=== PATIENT | male | born 2000 | race Caucasian/White ===

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

== ENCOUNTER 2023-06-20 22:56 | Emergency (ER) | payer BC, OTHER, SELFPAY ==
[2023-06-20 23:02] VITALS: BP 139/89; PULSE 76; RESP 18; TEMP 36.7; O2SAT 96; BMI 32.5
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
[2023-06-21 00:27] VITALS: BP 126/86; PULSE 84; RESP 16
== END 2023-06-21 00:29 | disposition home or self-care (01) ==
PROVIDERS: Emergency Provider Emergency Medicine; PCP Family Medicine
DX: F32.A Depression, unspecified (principal)
CPT/HCPCS: 99282; 99283

== ENCOUNTER 2024-03-03 23:04 | Emergency (ER) | payer BC, OTHER, MEDICAID, SELFPAY ==
[2024-03-03 23:09] VITALS: BP 138/97; PULSE 115; RESP 18; TEMP 37.2; O2SAT 98; BMI 32.5
[2024-03-03 23:26] VITALS: PULSE 118; O2SAT 97
[2024-03-03 23:30] VITALS: PULSE 111; O2SAT 98
--- NOTE | 2024-03-03 23:41 | EKG_ITS ---
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
[2024-03-03 23:52] VITALS: BP 143/85; PULSE 127; O2SAT 99
--- NOTE | 2024-03-03 23:54 | ED.GENADULT ---
HPI - General Adult <Jorge Araiza DO - Last Filed: 03/04/24 18:10> General Chief complaint: Toxicology Problem Stated complaint: Serotonin syndrome Time Seen by Provider: 03/03/24 23:27 Source: patient and family Mode of arrival: Family Vehicle History of Present Illness HPI narrative: Patient was a 23-year-old male. Has a history of depression, bipolar disorder. He was on Wellbutrin. Takes 150 mg of the extended release bupropion in the morning. He states that on the morning of 03/03/2024 he took 10 150 mg of the bupropion. He states he took them at 0800 hours in the morning. He knows that he took 10 of the tablets. He states that he was feeling somewhat depressed this morning in order to try to make himself feel better he took extra doses of his medicines. He states he was not doing it in order to kill himself. He denies any other ingestions. This evening he told his mom what he did which is what brought him to the emergency department greater than 12 hours after he took the medication. He reports nausea, visual hallucinations, palpitations. Related Data Previous Rx's Medication Instructions Recorded bupropion HCl 150 mg 24 hr tablet, 150 mg PO QAM #90 tabs 10/06/23 extended release Allergies Allergy/AdvReac Type Severity Reaction Status Date / Time cetirizine [From [facility]] Allergy Unknown Unverified 05/17/23 13:07 Review of Systems <Jorge Araiza DO - Last Filed: 03/04/24 18:10> Review of Systems ROS Unobtainable: All systems reviewed & are unremarkable except as noted in HPI and below Patient History <Jorge Araiza DO - Last Filed: 03/04/24 18:10> Medical History Depression (~2021) History of bipolar disorder (~2021) Preventative health care Anxiety (~2015) Social History Smoking Status: Never smoker Smoking Status: Never smoker Exam <Jorge Araiza DO - Last Filed: 03/04/24 18:10> Initial Vital Signs Initial Vital Signs: Vital Signs Temperature 98.9 F 03/03/24 23:09 Pulse Rate 115 H 03/03/24 23:09 Respiratory Rate 18 03/03/24 23:09 Blood Pressure 138/97 H 03/03/24 23:09 Pulse Oximetry 98 03/03/24 23:09 Oxygen Delivery Method Room Air 03/03/24 23:09 Const General: cooperative, comfortable and No ill appearing HENMT Head: normal to inspection and normocephalic Resp Effort & Inspection: normal respiratory effort Auscultation: clear to auscultation bilaterally Cardio Rate: tachycardic Rhythm: regular rhythm GI Inspection: normal to inspection Skin General: no rashes or lesions noted Neuro General: patient alert, patient awake, patient oriented x3 and moves all extremities Cognition: normal cognition Speech: speech normal DTR's: Rt Patellar: 2+ and Lt Patellar: 2+ Other: No clonus noted Extrem General: capillary refill normal <Trinidad Ingram DO - Last Filed: 03/04/24 18:33> Initial Vital Signs Initial Vital Signs: Vital Signs Temperature 98.9 F 03/03/24 23:09 Pulse Rate 115 H 03/03/24 23:09 Respiratory Rate 18 03/03/24 23:09 Blood Pressure 138/97 H 03/03/24 23:09 Pulse Oximetry 98 03/03/24 23:09 Oxygen Delivery Method Room Air 03/03/24 23:09 Scores <Jogre Araiza DO - Last Filed: 03/04/24 18:10> GCS [place] coma scale eye opening: Spontaneous Ina coma scale verbal response: Orientated Ina coma scale motor response: Obey commands Ina coma scale total score: 15 <Trinidad Ingram DO - Last Filed: 03/04/24 18:33> GCS [place] coma scale total score: 15 Course <Jorge Araiza DO - Last Filed: 03/04/24 18:10> Orders Ordered: ED Orders 03/03/24 23:41 Consult to BAND SPL[employer]ER - Low Voltage Electrician Stat EKG-12 Lead Stat 03/03/24 23:50 Acetaminophen Stat Complete Blood Count AUTO DIFF Stat Comprehensive Metabolic Panel Stat Ethanol (ETOH) Stat Lipase Stat Salicylate Stat Thyroid Stimulating Hormone Stat 03/04/24 00:59 Urinalysis and Microscopic Stat Urine Drug Screen, Rapid Stat 03/04/24 08:25 CMP [Comprehensive Metabolic Panel] Stat Vital Signs Vital signs: Vital Signs - 8 hr 03/04/24 00:59 03/04/24 00:59 03/04/24 01:00 Pulse Rate 118 H 116 H Blood Pressure 144/88 H Pulse Oximetry 98 98 Oxygen Delivery Method Room Air 03/04/24 01:00 03/04/24 01:30 03/04/24 01:30 Pulse Rate 123 H Blood Pressure 144/87 H 135/84 Pulse Oximetry 98 Oxygen Delivery Method 03/04/24 02:00 03/04/24 02:00 03/04/24 02:34 Pulse Rate 114 H 131 H Blood Pressure 131/82 Pulse Oximetry 96 97 Oxygen Delivery Method 03/04/24 02:36 03/04/24 02:36 03/04/24 03:00 Pulse Rate 119 H Blood Pressure 140/81 139/82 Pulse Oximetry 96 Oxygen Delivery Method 03/04/24 03:00 03/04/24 03:30 03/04/24 03:30 Pulse Rate 117 H 111 H Blood Pressure 131/81 Pulse Oximetry 96 95 Oxygen Delivery Method 03/04/24 04:00 03/04/24 04:00 03/04/24 07:00 Pulse Rate 112 H 111 H Blood Pressure 132/81 Pulse Oximetry 96 97 Oxygen Delivery Method 03/04/24 07:00 03/04/24 07:15 03/04/24 07:30 Pulse Rate 109 H 106 H Blood Pressure 150/87 H Pulse Oximetry 96 97 Oxygen Delivery Method 03/04/24 07:30 03/04/24 08:00 03/04/24 08:00 Pulse Rate 104 H Blood Pressure 153/95 H 154/90 H Pulse Oximetry 97 Oxygen Delivery Method <Trinidad Ingram, DO - Last Filed: 03/04/24 18:33> Orders Ordered: ED Orders 03/03/24 23:41 Consult to BAND SPLICER - Low Voltage Electrician Stat EKG-12 Lead Stat 03/03/24 23:50 Acetaminophen Stat Complete Blood Count AUTO DIFF Stat Comprehensive Metabolic Panel Stat Ethanol (ETOH) Stat Lipase Stat Salicylate Stat Thyroid Stimulating Hormone Stat 03/04/24 00:59 Urinalysis and Microscopic Stat Urine Drug Screen, Rapid Stat 03/04/24 08:25 CMP [Comprehensive Metabolic Panel] Stat Vital Signs Vital signs: Vital Signs - 8 hr 03/04/24 00:59 03/04/24 00:59 03/04/24 01:00 Pulse Rate 118 H 116 H Blood Pressure 144/88 H Pulse Oximetry 98 98 Oxygen Delivery Method Room Air 03/04/24 01:00 03/04/24 01:30 03/04/24 01:30 Pulse Rate 123 H Blood Pressure 144/87 H 135/84 Pulse Oximetry 98 Oxygen Delivery Method 03/04/24 02:00 03/04/24 02:00 03/04/24 02:34 Pulse Rate 114 H 131 H Blood Pressure 131/82 Pulse Oximetry 96 97 Oxygen Delivery Method 03/04/24 02:36 03/04/24 02:36 03/04/24 03:00 Pulse Rate 119 H Blood Pressure 140/81 139/82 Pulse Oximetry 96 Oxygen Delivery Method 03/04/24 03:00 03/04/24 03:30 03/04/24 03:30 Pulse Rate 117 H 111 H Blood Pressure 131/81 Pulse Oximetry 96 95 Oxygen Delivery Method 03/04/24 04:00 03/04/24 04:00 03/04/24 07:00 Pulse Rate 112 H 111 H Blood Pressure 132/81 Pulse Oximetry 96 97 Oxygen Delivery Method 03/04/24 07:00 03/04/24 07:15 03/04/24 07:30 Pulse Rate 109 H 106 H Blood Pressure 150/87 H Pulse Oximetry 96 97 Oxygen Delivery Method 03/04/24 07:30 03/04/24 08:00 03/04/24 08:00 Pulse Rate 104 H Blood Pressure 153/95 H 154/90 H Pulse Oximetry 97 Oxygen Delivery Method Medical Decision Making <Jorge Araiza, DO - Last Filed: 03/04/24 18:10> Medical Records Medical records reviewed: Yes I reviewed the patient's medical records. Lab Data Lab results reviewed: Yes I reviewed the patient's lab results. 03/03/24 23:50 03/04/24 08:25 Labs: Lab Results 03/03/24 03/04/24 03/04/24 Range/Units 23:50 00:59 00:59 WBC 5.2 (4.5-11.0) X10^3/uL RBC 5.22 (4.5-5.9) X10^6/uL Hgb 15.8 (13.5-17.5) g/dL Hct 46.1 (41-53) % MCV 88.3 (80-100) fL MCH 30.4 (26-34) PG MCHC 34.4 (30-36) % RDW 13.2 (11.6-14.8) % Plt Count 238 (150-400) X10^3/uL Neut % (Auto) 71.2 (50-75) % Lymph % (Auto) 20.8 L (25-40) % Rich % (Auto) 4.2 (3-14) % Eos % (Auto) 1.9 L (2-4) % Baso % (Auto) 1.9 (0-2) % Neut # (Auto) 3700 (3181-4629) /uL Lymph # (Auto) 1100 (8833-7654) /uL Rich # (Auto) 200 (0-900) /uL Eos # (Auto) 100 (0-450) /uL Baso # (Auto) 100 (0-100) /uL Sodium 138 (137-145) mmol/L Potassium 4.0 (3.4-5.1) mmol/L Chloride 103 (98-107) mmol/L Carbon Dioxide 27 (22-32) mmol/L BUN 10 (9-20) mg/dL Creatinine 1.18 (0.66-1.25) mg/dL Estimated GFR > 60 (>60) mL/min BUN/Creatinine Ratio 8.5 (6-22) Glucose 92 (70-100) mg/dL Calcium 9.6 (8.4-10.2) mg/dL Total Bilirubin 0.7 (0.2-1.3) mg/dL AST 42 (17-59) IU/L ALT 52 H (<50) IU/L Alkaline Phosphatase 100 (38-126) U/L Total Protein 7.1 (6.3-8.2) g/dL Albumin 4.8 (3.5-5.0) g/dL Globulin 2.3 (1.7-4.1) g/dL Albumin/Globulin Ratio 2.1 (1.0-2.8) Lipase 63 (23-300) U/L TSH 2.20 (0.47-4.68) uIU/mL Urine Color Yellow Urine Appearance Clear Urine pH 6.0 Normal (4.5-8.0) Ur Specific [place] 1.010 (1.000-1.035) Urine Protein Negative (Negative) Urine Glucose (UA) Negative (Negative) g/dL Urine Ketones Negative (NEGATIVE) Urine Occult Blood Negative (Negative) Urine Nitrate Negative (Negative) Urine Bilirubin Negative (NEGATIVE) Urine Urobilinogen 0.2 (0.2) E.U./dL Ur Leukocyte Esterase Negative (NEGATIVE) Urine RBC None seen (0-5/HPF) Urine WBC None seen (0-5/HPF) Ur Squamous Epith Cells None seen (0-5/HPF) Urine Bacteria None seen (None) Ur Culture Indicated? Cult not indicated Vol Urine Centrifuged 10ml (spun) Salicylates < 1.0 (<20) mg/dL U Opiates 300ng/mL cut Negative (Negative) Ur Oxycodone Screen Negative (Negative) Urine Methadone Screen Negative (Negative) Acetaminophen < 10 (10-30) ug/mL Ur Barbiturates Screen Negative (Negative) U Tricyclic Antidepress Negative (Negative) Ur Phencyclidine Scrn Negative (Negative) Ur Amphetamines Screen Negative (Negative) U Methamphetamines Scrn Negative (Negative) Ur MDMA Scrn (Ecstasy) Negative (Negative) U Benzodiazepines Scrn Negative (Negative) Urine Cocaine Screen Negative (Negative) U Marijuana (THC) Screen Negative (Negative) Urine Specific [place] Normal (Normal) Ethyl Alcohol < 10 ( - 10) mg/dL Ur Creatinine Normal (Normal) 03/04/24 Range/Units 08:25 WBC (4.5-11.0) X10^3/uL RBC (4.5-5.9) X10^6/uL Hgb (13.5-17.5) g/dL Hct (41-53) % MCV (80-100) fL MCH (26-34) PG MCHC (30-36) % RDW (11.6-14.8) % Plt Count (150-400) X10^3/uL Neut % (Auto) (50-75) % Lymph % (Auto) (25-40) % Rich % (Auto) (3-14) % Eos % (Auto) (2-4) % Baso % (Auto) (0-2) % Neut # (Auto) (1069-3833) /uL Lymph # (Auto) (0793-6278) /uL Rich # (Auto) (0-900) /uL Eos # (Auto) (0-450) /uL Baso # (Auto) (0-100) /uL Sodium 137 (137-145) mmol/L Potassium 3.8 (3.4-5.1) mmol/L Chloride 102 (98-107) mmol/L Carbon Dioxide 27 (22-32) mmol/L BUN 10 (9-20) mg/dL Creatinine 1.20 (0.66-1.25) mg/dL Estimated GFR > 60 (>60) mL/min BUN/Creatinine Ratio 8.3 (6-22) Glucose 90 (70-100) mg/dL Calcium 9.4 (8.4-10.2) mg/dL Total Bilirubin 0.7 (0.2-1.3) mg/dL AST 35 (17-59) IU/L ALT 47 (<50) IU/L Alkaline Phosphatase 95 (38-126) U/L Total Protein 6.8 (6.3-8.2) g/dL Albumin 4.6 (3.5-5.0) g/dL Globulin 2.2 (1.7-4.1) g/dL Albumin/Globulin Ratio 2.1 (1.0-2.8) Lipase (23-300) U/L TSH (0.47-4.68) uIU/mL Urine Color Urine Appearance Urine pH (4.5-8.0) Ur Specific [place] (1.000-1.035) Urine Protein (Negative) Urine Glucose (UA) (Negative) g/dL Urine Ketones (NEGATIVE) Urine Occult Blood (Negative) Urine Nitrate (Negative) Urine Bilirubin (NEGATIVE) Urine Urobilinogen (0.2) E.U./dL Ur Leukocyte Esterase (NEGATIVE) Urine RBC (0-5/HPF) Urine WBC (0-5/HPF) Ur Squamous Epith Cells (0-5/HPF) Urine Bacteria (None) Ur Culture Indicated? Vol Urine Centrifuged Salicylates (<20) mg/dL U Opiates 300ng/mL cut (Negative) Ur Oxycodone Screen (Negative) Urine Methadone Screen (Negative) Acetaminophen (10-30) ug/mL Ur Barbiturates Screen (Negative) U Tricyclic Antidepress (Negative) Ur Phencyclidine Scrn (Negative) Ur Amphetamines Screen (Negative) U Methamphetamines Scrn (Negative) Ur MDMA Scrn (Ecstasy) (Negative) U Benzodiazepines Scrn (Negative) Urine Cocaine Screen (Negative) U Marijuana (THC) Screen (Negative) Urine Specific [place] (Normal) Ethyl Alcohol ( - 10) mg/dL Ur Creatinine (Normal) ECG Data Attestation: I personally reviewed and interpreted this ECG as follows: Interpretation: Sinus tachycardia Ventricular rate 113 Normal axis Normal QRS QTC [address] T wave changes MDM Narrative Medical decision making narrative: Patient arrives in the emergency department greater than 12 hours after the reported ingestion of the medication. He denies suicidal ideation. He has been tachycardic. His labs are unremarkable. I did discuss the case with poison control. They recommended a 24 hour observation from the time of the ingestion. I did discuss this with the patient and mother. My re-evaluation patient states he is feeling much better than when he even came here to the emergency department. We discussed the length time for recommendation of observation. Patient currently does not have an acute serotonin syndrome. Care turned over to day provider to follow up and disposition. <Trinidad Ingram, - Last Filed: 03/04/24 18:33> Lab Data Labs: Lab Results 03/03/24 03/04/24 03/04/24 Range/Units 23:50 00:59 00:59 WBC 5.2 (4.5-11.0) X10^3/uL RBC 5.22 (4.5-5.9) X10^6/uL Hgb 15.8 (13.5-17.5) g/dL Hct 46.1 (41-53) % MCV 88.3 (80-100) fL MCH 30.4 (26-34) PG MCHC 34.4 (30-36) % RDW 13.2 (11.6-14.8) % Plt Count 238 (150-400) X10^3/uL Neut % (Auto) 71.2 (50-75) % Lymph % (Auto) 20.8 L (25-40) % Rich % (Auto) 4.2 (3-14) % Eos % (Auto) 1.9 L (2-4) % Baso % (Auto) 1.9 (0-2) % Neut # (Auto) 3700 (7934-2262) /uL Lymph # (Auto) 1100 (9905-0057) /uL Rich # (Auto) 200 (0-900) /uL Eos # (Auto) 100 (0-450) /uL Baso # (Auto) 100 (0-100) /uL Sodium 138 (137-145) mmol/L Potassium 4.0 (3.4-5.1) mmol/L Chloride 103 (98-107) mmol/L Carbon Dioxide 27 (22-32) mmol/L BUN 10 (9-20) mg/dL Creatinine 1.18 (0.66-1.25) mg/dL Estimated GFR > 60 (>60) mL/min BUN/Creatinine Ratio 8.5 (6-22) Glucose 92 (70-100) mg/dL Calcium 9.6 (8.4-10.2) mg/dL Total Bilirubin 0.7 (0.2-1.3) mg/dL AST 42 (17-59) IU/L ALT 52 H (<50) IU/L Alkaline Phosphatase 100 (38-126) U/L Total Protein 7.1 (6.3-8.2) g/dL Albumin 4.8 (3.5-5.0) g/dL Globulin 2.3 (1.7-4.1) g/dL Albumin/Globulin Ratio 2.1 (1.0-2.8) Lipase 63 (23-300) U/L TSH 2.20 (0.47-4.68) uIU/mL Urine Color Yellow Urine Appearance Clear Urine pH 6.0 Normal (4.5-8.0) Ur Specific [place] 1.010 (1.000-1.035) Urine Protein Negative (Negative) Urine Glucose (UA) Negative (Negative) g/dL Urine Ketones Negative (NEGATIVE) Urine Occult Blood Negative (Negative) Urine Nitrate Negative (Negative) Urine Bilirubin Negative (NEGATIVE) Urine Urobilinogen 0.2 (0.2) E.U./dL Ur Leukocyte Esterase Negative (NEGATIVE) Urine RBC None seen (0-5/HPF) Urine WBC None seen (0-5/HPF) Ur Squamous Epith Cells None seen (0-5/HPF) Urine Bacteria None seen (None) Ur Culture Indicated? Cult not indicated Vol Urine Centrifuged 10ml (spun) Salicylates < 1.0 (<20) mg/dL U Opiates 300ng/mL cut Negative (Negative) Ur Oxycodone Screen Negative (Negative) Urine Methadone Screen Negative (Negative) Acetaminophen < 10 (10-30) ug/mL Ur Barbiturates Screen Negative (Negative) U Tricyclic Antidepress Negative (Negative) Ur Phencyclidine Scrn Negative (Negative) Ur Amphetamines Screen Negative (Negative) U Methamphetamines Scrn Negative (Negative) Ur MDMA Scrn (Ecstasy) Negative (Negative) U Benzodiazepines Scrn Negative (Negative) Urine Cocaine Screen Negative (Negative) U Marijuana (THC) Screen Negative (Negative) Urine Specific [place] Normal (Normal) Ethyl Alcohol < 10 ( - 10) mg/dL Ur Creatinine Normal (Normal) 03/04/24 Range/Units 08:25 WBC (4.5-11.0) X10^3/uL RBC (4.5-5.9) X10^6/uL Hgb (13.5-17.5) g/dL Hct (41-53) % MCV (80-100) fL MCH (26-34) PG MCHC (30-36) % RDW (11.6-14.8) % Plt Count (150-400) X10^3/uL Neut % (Auto) (50-75) % Lymph % (Auto) (25-40) % Rich % (Auto) (3-14) % Eos % (Auto) (2-4) % Baso % (Auto) (0-2) % Neut # (Auto) (8059-3374) /uL Lymph # (Auto) (1158-2918) /uL Rich # (Auto) (0-900) /uL Eos # (Auto) (0-450) /uL Baso # (Auto) (0-100) /uL Sodium 137 (137-145) mmol/L Potassium 3.8 (3.4-5.1) mmol/L Chloride 102 (98-107) mmol/L Carbon Dioxide 27 (22-32) mmol/L BUN 10 (9-20) mg/dL Creatinine 1.20 (0.66-1.25) mg/dL Estimated GFR > 60 (>60) mL/min BUN/Creatinine Ratio 8.3 (6-22) Glucose 90 (70-100) mg/dL Calcium 9.4 (8.4-10.2) mg/dL Total Bilirubin 0.7 (0.2-1.3) mg/dL AST 35 (17-59) IU/L ALT 47 (<50) IU/L Alkaline Phosphatase 95 (38-126) U/L Total Protein 6.8 (6.3-8.2) g/dL Albumin 4.6 (3.5-5.0) g/dL Globulin 2.2 (1.7-4.1) g/dL Albumin/Globulin Ratio 2.1 (1.0-2.8) Lipase (23-300) U/L TSH (0.47-4.68) uIU/mL Urine Color Urine Appearance Urine pH (4.5-8.0) Ur Specific [place] (1.000-1.035) Urine Protein (Negative) Urine Glucose (UA) (Negative) g/dL Urine Ketones (NEGATIVE) Urine Occult Blood (Negative) Urine Nitrate (Negative) Urine Bilirubin (NEGATIVE) Urine Urobilinogen (0.2) E.U./dL Ur Leukocyte Esterase (NEGATIVE) Urine RBC (0-5/HPF) Urine WBC (0-5/HPF) Ur Squamous Epith Cells (0-5/HPF) Urine Bacteria (None) Ur Culture Indicated? Vol Urine Centrifuged Salicylates (<20) mg/dL U Opiates 300ng/mL cut (Negative) Ur Oxycodone Screen (Negative) Urine Methadone Screen (Negative) Acetaminophen (10-30) ug/mL Ur Barbiturates Screen (Negative) U Tricyclic Antidepress (Negative) Ur Phencyclidine Scrn (Negative) Ur Amphetamines Screen (Negative) U Methamphetamines Scrn (Negative) Ur MDMA Scrn (Ecstasy) (Negative) U Benzodiazepines Scrn (Negative) Urine Cocaine Screen (Negative) U Marijuana (THC) Screen (Negative) Urine Specific [place] (Normal) Ethyl Alcohol ( - 10) mg/dL Ur Creatinine (Normal) MDM Narrative Medical decision making narrative: Patient arrives in the emergency department greater than 12 hours after the reported ingestion of the medication. He denies suicidal ideation. He has been tachycardic. His labs are unremarkable. I did discuss the case with poison control. They recommended a 24 hour observation from the time of the ingestion. I did discuss this with the patient and mother. My re-evaluation patient states he is feeling much better than when he even came here to the emergency department. We discussed the length time for recommendation of observation. Patient currently does not have an acute serotonin syndrome. Care turned over to day provider to follow up and disposition. Dr. ingram-patient signed out to me by Dr. Szymanski I have seen evaluated patient myself. He states he is overall feeling a lot better. He does have Tourette syndrome he was on citalopram but Tourette symptoms got worse he was weaning off the citalopram starting on the Wellbutrin but depression symptoms got worse as citalopram was tapered down. He just wanted to feel happy yesterday and took Wellbutrin. He does have intermittent suicidal thoughts but no real plan. He has historically seen a therapist has not seen 1 in [facility]. Primary care Dr. Yuan is managing medication. They have also use telehealth psychiatry providers in the past. At this time patient lives with his mom is able to contract for safety he does not meet involuntary criteria. Poison control wanted to repeat AST and ALT this morning AST is 35 ALT 47 at this time no evidence of serotonin syndrome. Patient states I have learned by lesson.We talked about how medication can not make you happy and that there are side effects and consequences of all medications. Patient and mother both feel comfortable going home Discharge Plan Departure Patient Disposition: Home Clinical Impression: Deliberate medication overdose, Depression Instructions: Depression Activity Restrictions/Additional Instructions: *You have been diagnosed with depression *What to do: At this time please talk with Dr. Yuan or tele health provider in regards to your medication. Hold off taking Wellbutrin today, start tomorrow as prescribed If you are feeling suicidal or having suicidal thoughts: Call: Suicide Hotline: 885 Visit: www.[facility]org Text: 667270 *Continue to take medications as directed *Follow up with your primary care provider in 2-3 days or call [phone] *Return to ER if you should have increased thoughts of suicidal ideation depression or any new, worsening or concerning symptoms Prescriptions: No Action bupropion HCl 150 mg tablet extended release 24 hr 150 mg PO QAM Qty: 90 3RF Referrals: Nelson Yuan DO [Primary Care Provider] - Stand Alone Forms: Patient Portal/API/Survey
[2024-03-04] VITALS (18 sets, daily range): BP systolic 131–154; BP diastolic 77–95; PULSE 100–131; RESP 23–24; TEMP 36.6; O2SAT 95–98
[2024-03-04] LABS: Add Manual Diff / Slide Review NO; Basophils Absolute Auto 100 /uL (0-100); Basophils Percent Auto 1.9 % (0-2); Eosinophils Absolute Auto 100 /uL (0-450); Eosinophils Percent Auto 1.9 % (2-4); Hematocrit 46.1 % (41-53); Hemoglobin 15.8 g/dL (13.5-17.5); Lymphocytes Absolute Auto 1100 /uL (1100-4500); Lymphocytes Percent Auto 20.8 % (25-40); Mean Corpuscular HGB Conc 34.4 % (30-36); Mean Corpuscular Hemoglobin 30.4 PG (26-34); Mean Corpuscular Volume 88.3 fL (80-100); Monocytes Absolute Auto 200 /uL (0-900); Monocytes Percent Auto 4.2 % (3-14); Neutrophils Absolute Auto 3700 /uL (1500-7000); Neutrophils Percent Auto 71.2 % (50-75); Platelet Count 238 X10^3/uL (150-400); Red Blood Cell Count 5.22 X10^6/uL (4.5-5.9); Red Cell Distribution Width 13.2 % (11.6-14.8); White Blood Cell Count 5.2 X10^3/uL (4.5-11.0)
[2024-03-04 00:13] LABS: Acetaminophen < 10 ug/mL (10-30); Alanine Aminotransferase 52 IU/L (<50); Albumin 4.8 g/dL (3.5-5.0); Albumin Globulin Ratio 2.1 (1.0-2.8); Alkaline Phosphatase 100 U/L (38-126); Aspartate Aminotransferase 42 IU/L (17-59); BUN Creatinine Ratio 8.5 (6-22); Bilirubin Total 0.7 mg/dL (0.2-1.3); Blood Urea Nitrogen 10 mg/dL (9-20); Calcium 9.6 mg/dL (8.4-10.2); Carbon Dioxide 27 mmol/L (22-32); Chloride 103 mmol/L (98-107); Estimated Glomerular Filt Rate > 60 mL/min (>60); Ethanol (ETOH) < 10 mg/dL; Globulin 2.3 g/dL (1.7-4.1); Glucose 92 mg/dL (70-100); Lipase 63 U/L (23-300); Salicylate < 1.0 mg/dL (<20); Sodium 138 mmol/L (137-145); Total Protein 7.1 g/dL (6.3-8.2)
[2024-03-04 00:14] LABS: HEMOLYSIS 51 (0-50)
[2024-03-04 01:05] LABS: Appearance Urine UA CLEAR; Bilirubin Urine UA NEGATIVE (NEGATIVE); Color Urine UA YELLOW; Glucose Urine UA NEGATIVE (Negative); Ketones Urine UA NEGATIVE (NEGATIVE); Leukocyte Esterase Urine UA NEGATIVE (NEGATIVE); Nitrite Urine UA NEGATIVE (Negative); Occult Blood Urine UA NEGATIVE (Negative); Protein Urine UA NEGATIVE (Negative); Urobilinogen Urine UA 0.2 E.U./dL (0.2)
[2024-03-04 01:10] LABS: Ur Creatinine Normal (Normal); Ur Specific Gravity Normal (Normal); Urine Amphetamines Negative (Negative); Urine Barbiturates Negative (Negative); Urine Benzodiazepines Negative (Negative); Urine Cocaine Negative (Negative); Urine MDMA Negative (Negative); Urine Methadone Negative (Negative); Urine Methamphetamines Negative (Negative); Urine Opiates Negative (Negative); Urine Oxycodone Negative (Negative); Urine Phencyclidine Negative (Negative); Urine THC Negative (Negative); Urine Tricyclic Antidepressant Negative (Negative); Urine pH Normal (Normal)
[2024-03-04 01:16] LABS: Bacteria Urine None Seen; Culture Indicated Urine Cult Not Indicated; RBC Urine None Seen (0-5/HPF); Squamous Epithelial Cell Urine None Seen (0-5/HPF); Urine Volume 10mL (spun); WBC Urine None Seen (0-5/HPF)
--- NOTE | 2024-03-04 04:28 | PC.NURSE ---
Per provider will keep until 0800 and reevaluate. At that time it will have been 24 hours from ingestion of Bupropion XL 1500 mg.
--- NOTE | 2024-03-04 07:45 | PC.NURSE ---
States he has intermittent muscles spasms throughout body and feels heart racing.
--- NOTE | 2024-03-04 08:38 | PC.NURSE ---
Poison Control called back; RN gave update. PC stated to recheck LFT's; MD Sanders made aware. PC stated to call back w/ any questions or changes.
[2024-03-04 08:42] LABS: Alanine Aminotransferase 47 IU/L (<50); Albumin 4.6 g/dL (3.5-5.0); Albumin Globulin Ratio 2.1 (1.0-2.8); Alkaline Phosphatase 95 U/L (38-126); Aspartate Aminotransferase 35 IU/L (17-59); BUN Creatinine Ratio 8.3 (6-22); Bilirubin Total 0.7 mg/dL (0.2-1.3); Blood Urea Nitrogen 10 mg/dL (9-20); Calcium 9.4 mg/dL (8.4-10.2); Carbon Dioxide 27 mmol/L (22-32); Chloride 102 mmol/L (98-107); Estimated Glomerular Filt Rate > 60 mL/min (>60); Globulin 2.2 g/dL (1.7-4.1); Glucose 90 mg/dL (70-100); HEMOLYSIS 28 (0-50); Potassium 3.8 mmol/L (3.4-5.1); Sodium 137 mmol/L (137-145); Total Protein 6.8 g/dL (6.3-8.2)
== END 2024-03-04 09:45 | disposition home or self-care (01) ==
PROVIDERS: Emergency Medicine; Emergency Provider Emergency Medicine; PCP Family Medicine
DX: F32.9 Major depressive disorder, single episode, unspecified (principal); R11.0 Nausea; R44.1 Visual hallucinations; R00.0 Tachycardia, unspecified; R00.2 Palpitations; T43.292A Poisoning by other antidepressants, intentional self-harm, initial encounter
CPT/HCPCS: 36415; 80053; 80305; 80320; 80329; 81001; 83690; 84443; 85025; 93005; 93010; 99283; 99284; G0480